=== PATIENT | male | born 1955 | race African-American/Black ===

== ENCOUNTER 2016-11-16 17:22 | Emergency (ER) | payer MEDICAID ==
[~2016-11-16] VITALS: Ht 175.3 cm; Wt 90.3 kg
[~2016-11-16 17:22] MED LIST: AMLODIPINE BESY10 MG PO; ASPIRIN81 M1 PO; CYCLOBENZAPRINE10 MG ORAL; IBUPROFEN600 MG ORAL; IBUPROFEN800 MG PO; LOSARTAN POTASS50 MG ORAL; NORCO 5-325 TA1 EACH ORAL; NORVASC10 MG ORAL; PREVPAC PATIEN1 EACH PO; TRAMADOL HCL50 MG ORAL; VICODIN 5-5001 EACH PO
[2016-11-16 17:55] VITALS: BP 156/78
[2016-11-16] MEDS ORDERED: METOPROLOL TART50 MG ORAL (17:55)
[2016-11-16] MEDS ORDERED: TRAMADOL HCL50 MG ORAL (19:23)
[2016-11-16] MEDS ORDERED: IBUPROFEN600 MG ORAL (19:23)
[2016-11-16 19:33] VITALS: BP 156/78
--- NOTE | 2016-11-16 22:39 | Emergency Room Report ---
History of Present Illness General Chief Complaint: Upper Extremity Injury Source: Patient Present Illness [facility] The patient is a 60-year-old male presenting with right elbow pain which began 2 days prior for no known reason. The pain is described as a 9/10 dull ache it is worse with movement of the arm. No radiating pain. The patient denies any injury to the arm. The patient has not tried any medications. The patient denies any numbness or tingling and denies fever or chills Allergies: Coded Allergies: No Known Allergies (Unverified , 07/19/12) Patient History Past Medical History: see triage record Pertinent Family History: none Reviewed Nursing Documentation: PMH: Agreed, PSxH: Agreed Nursing Documentation-PMH Hx Hypertension: Yes Review of Systems All Other Systems: negative except mentioned in HPI Physical Exam Vital Signs Date Time Temp Pulse Resp B/P Pulse Ox O2 Delivery O2 Flow Rate FiO2 11/16/16 17:50 98.8 54 16 156/78 97 Room Air Sp02 EP Interpretation: reviewed, normal General Appearance: no apparent distress, alert, GCS 15, non-toxic Head: normocephalic, atraumatic Eyes: bilateral eye PERRL, bilateral eye normal inspection ENT: hearing grossly normal, normal pharynx, no angioedema, normal voice Neck: full range of motion, supple/symm/no masses Respiratory: chest non-tender, lungs clear, normal breath sounds, speaking full sentences Musculoskeletal: digits/nails normal, normal range of motion, tender - Tenderness to palpation over the olecranon and lateral epicondyle Neurologic: alert, oriented x3, responsive, motor strength/tone normal, sensory intact, speech normal Psychiatric: judgement/insight normal, memory normal, mood/affect normal, no suicidal/homicidal ideation Reflexes: 3+ bicep (R), 3+ bicep (L), 3+ tricep (R), 3+ tricep (L), 3+ knee (R) , 3+ knee (L) Skin: normal color, no rash, warm/dry, well hydrated Lymphatic: no adenopathy Procedures Splinting Splinting #1: Consent: Verbal Location: Right elbow Pre-Made Type: MOSES wrap Pre-Proc Neuro Vasc Exam: normal Post-Proc Neuro Vasc Exam: normal Patient Tolerated: Well Complications: None Splinting #2: Consent: Verbal Location: Right arm Pre-Made Type: Sling Pre-Proc Neuro Vasc Exam: normal Post-Proc Neuro Vasc Exam: normal Patient Tolerated: Well Complications: None Medical Decision Making PA Attestation Dr. Gutierrez is my supervising physician. Patient management was discussed with my supervising physician Diagnostic Impression: Primary Impression: Epicondylitis, lateral ER Course The patient is a 60-year-old male presenting with right elbow pain Ddx considered include but not limited to sprain/strain, fracture, contusion, gout, epicondylitis Physical exam: No apparent distress. Afebrile Right elbow: Full active range of motion. Sensation intact to light touch. No erythema or edema. There is tenderness to palpation over the olecranon and lateral epicondyles. Obvious deformity. No ecchymosis X-ray of the elbow is unremarkable Moses wrap is placed over the elbow the patient is given a sling. Patient is given a prescription for Motrin and tramadol. Patient will follow up with primary care. ER precautions given Other X-Ray Diagnostic Results Other X-Ray Diagnostic Results : X-Ray Ordered: R elbow Date: Nov 16, 2016 EP Interpretation: Yes Findings: no fractures, no dislocation, no soft tissue swelling Number of Views: 3 PA Scribe Text I am acting as scribe for my supervising physician. My supervising physician's interpretation of the R elbow xrays are there are no fractures, dislocations or soft tissue swelling. Last Vital Signs Date Time Temp Pulse Resp B/P Pulse Ox O2 Delivery O2 Flow Rate FiO2 11/16/16 19:33 54 16 156/78 97 Room Air 11/16/16 17:55 98.8 Status: improved Disposition: HOME, SELF-CARE Condition: Improved Scripts Tramadol Hcl* (ULTRAM*) 50 Mg Tablet 50 MG ORAL Q6H Y for For Pain, #10 TAB 0 Refills Prov: TERZIAN,ISABEL P.A. 11/16/16 Ibuprofen* (MOTRIN*) 600 Mg Tablet 600 MG ORAL Q8H Y for For Pain, #30 TAB 0 Refills Prov: TERZIAN,ISABEL P.A. 11/16/16 Patient Instructions: Lateral Epicondylitis With Rehab-Sports[facility] Additional Instructions: I discussed my findings with the patient. All questions and concerns have been answered. Treatment and medication compliance have been addressed. I advised the patient that they need to follow up with PMD in 3-5 days. Return to ED if pain remains or worsens, numbness or tingling occurs, new rash is noticed, fever is noticed, or if needed for any reason. Patient verbalized understanding of discharge instructions. ISABEL WALTERS Nov 16, 2016 22:39
--- NOTE | 2016-11-17 12:57 | Diagnostic Imaging Report ---
Indications: Right elbow pain Technique: 3 views of the right elbow Findings: Comparison: None No fracture, dislocation, lytic destruction, periosteal reaction, joint space widening or effusion, surrounding soft tissue abnormality, or other acute changes demonstrated. No deformity, alignment abnormality, arthritic change, soft tissue calcification, or other chronic changes demonstrated. IMPRESSION: Negative right elbow series.
== END 2016-11-16 19:34 | disposition home or self-care (01) ==
LOC: EMR 19:17
DX: M77.11 Lateral epicondylitis, right elbow (principal); I10 Essential (primary) hypertension
CPT/HCPCS: 29240; 29260; 99284

== ENCOUNTER 2017-02-09 | Emergency (ER) | payer MEDICAID, OTHER ==
[~2017-02-09] VITALS: Ht 177.8 cm; Wt 86.2 kg
[~2017-02-09] MED LIST changes: +METOPROLOL TART50 MG ORAL
[2017-02-09] MEDS ORDERED: OMEPRAZOLE40 M1 ORAL (00:10)
[2017-02-09] MEDS ORDERED: NORVASC10 MG ORAL (00:10)
[2017-02-09] MEDS ORDERED: PROPRANOLOL HCL40 MG ORAL (00:10)
[2017-02-09] MEDS ORDERED: HYDROCHLOROTHIA25 MG ORAL (00:10)
[2017-02-09 00:30] VITALS: BP 146/77
[2017-02-09] MEDS ORDERED: Aspirin Baby 81mg ORAL ONE (00:45)
[2017-02-09] MEDS ORDERED: Nitroglycerin 2% oint pkt TOPIC ONE (00:45)
[2017-02-09 00:59] LABS: APPEARANCE,URINE CLEAR; KETONES,URINE NEGATIVE (NEGATIVE); LEUKOCYTE ESTERASE ,URINE NEGATIVE (NEGATIVE); NITRITE,URINE NEGATIVE (NEGATIVE); PH,URINE 7 (4.5-8.0); PROTEIN,URINE NEGATIVE (NEGATIVE); UROBILINOGEN,URINE NORMAL MG/DL (0.0-1.0)
[2017-02-09 01:25] LABS: BASOPHILS % (AUTO) 2.2 % (0.0-2.0); EOSINOPHILS % (AUTO) 3.4 % (0.0-3.0); LYMPHOCYTES % (AUTO) 54.8 % (20.0-45.0); MEAN CORPUSCULAR HEMOGLOBIN 31.4 PG (27.0-31.0); MEAN CORPUSCULAR HGB CONC 34.3 G/DL (32.0-36.0); MEAN CORPUSCULAR VOLUME 92 FL (80-99); MEAN PLATELET VOLUME 7.4 FL (6.5-10.1); MONOCYTES % (AUTO) 9.6 % (1.0-10.0); PLATELET COUNT 120 K/UL (150-450); RED CELL DISTRIBUTION WIDTH 12.6 % (11.6-14.8); WHITE BLOOD COUNT 3.7 K/UL (4.8-10.8)
[2017-02-09 01:34] LABS: INR 1.2 (0.9-1.1); PROTHROMBIN TIME 11.9 SEC (9.30-11.50)
[2017-02-09 01:38] LABS: ALANINE AMINOTRANSFERASE 28 U/L (3-41); ANION GAP 8 (5-15); ASPARTATE AMINO TRANSFERASE 42 U/L (5-40); CARBON DIOXIDE 31 mEQ/L (20-30); CHLORIDE 98 mEQ/L (98-107); CREATININE 1.2 mg/dL (0.7-1.2); GLOMERULAR FILTRATION RATE > 60 mL/min (>60); HEMOLYSIS 182; POTASSIUM 5.1 mEQ/L (3.4-4.9); SODIUM 137 mEQ/L (135-145); TOTAL PROTEIN 7.1 g/dL (6.6-8.7); TROPONIN I < 0.30 ng/mL (<=0.30); URIC ACID 5.2 mg/dL (3.0-7.5)
[2017-02-09 01:47] VITALS: BP 138/79
--- NOTE | 2017-02-09 02:52 | Emergency Room Report ---
History of Present Illness General Chief Complaint: Edema Source: Patient Present Illness HPI Patient presents with bilateral foot pain and edema. No dyspnea or chest pain. No fevers or productive cough. Pain around ankles, not radiate 10/10, worsened over past week. Worsened with walking. Not take any medicine for this. Has had lasix in past. Denies tx for HTN - although review of older meds show Amlodipine and HCTZ. No renal problems. No calf tenderness or dyspnea. No fevers, chills. Has had eval for edema in past but can't say the cause. No NVD, dysuria. No h/o clots. No recent trauma. Allergies: Coded Allergies: No Known Allergies (Unverified , 02/09/17) Patient History Past Medical History: see triage record Social History: Reports: drug use - see tox, smoking Social History Narrative at home Reviewed Nursing Documentation: PMH: Agreed, PSxH: Agreed Nursing Documentation-PMH Hx Hypertension: Yes Review of Systems All Other Systems: negative except mentioned in HPI Physical Exam Vital Signs Date Time Temp Pulse Resp B/P Pulse Ox O2 Delivery O2 Flow Rate FiO2 02/09/17 00:02 98.1 75 16 155/97 97 Room Air Sp02 EP Interpretation: reviewed, normal General Appearance: well appearing, no apparent distress, GCS 15 Head: normocephalic Eyes: bilateral eye PERRL, bilateral eye normal inspection ENT: moist mucus membranes Neck: supple Respiratory: chest non-tender, lungs clear, normal breath sounds Cardiovascular #1: regular rate, rhythm, edema - + bilat Cardiovascular #2: 2+ radial (R) Gastrointestinal: normal inspection, normal bowel sounds, non tender, no mass, non-distended Musculoskeletal: digits/nails normal, gait/station normal, normal range of motion, no calf tenderness, pelvis stable, Manas's Sign negative Neurologic: alert, oriented x3, grossly normal Psychiatric: mood/affect normal Skin: normal inspection Medical Decision Making Diagnostic Impression: Primary Impression: Edema Qualified Codes: R60.9 - Edema, unspecified Additional Impressions: Substance abuse Ankle pain Qualified Codes: M25.571 - Pain in right ankle and joints of right foot; M25.572 - Pain in left ankle and joints of left foot ER Course Patient presents with edema and ankle pain. Ddx: dvt, chf, gout, pseudogout, medication side effect, renal failure amongst others. Emergent eval of cor and renal. Labs, EKG, CXR ordered. Treatment with lasix. Labs remarkable for nl BNP, eosinophilia (minimal), creat 1.2, + cocaine. EKG and CXR unremarkable. Uric acid normal. Diurese 1,400 ml Etiology of edema not clear. Also ankle pain unclear. Discussed 12 step. Patient improved. Patient stable for outpatient observation and treatment. Laboratory Tests Test 02/09/17 00:25 02/09/17 01:00 Urine Color Yellow Urine Appearance Clear Urine pH 7 (4.5-8.0) Urine Specific [place] 1.010 (1.005-1.035) Urine Protein Negative (NEGATIVE) Urine Glucose (UA) Negative (NEGATIVE) Urine Ketones Negative (NEGATIVE) Urine Occult Blood Negative (NEGATIVE) Urine Nitrite Negative (NEGATIVE) Urine Bilirubin Negative (NEGATIVE) Urine Urobilinogen Normal MG/DL (0.0-1.0) Urine Leukocyte Esterase Negative (NEGATIVE) Urine Opiates Screen Positive (NEGATIVE) H Urine Barbiturates Screen Negative (NEGATIVE) Phencyclidine (PCP) Screen Negative (NEGATIVE) Urine Amphetamines Screen Negative (NEGATIVE) Urine Benzodiazepines Screen Negative (NEGATIVE) Urine Cocaine Screen Positive (NEGATIVE) H Urine Marijuana (THC) Screen Negative (NEGATIVE) White Blood Count 3.7 K/UL (4.8-10.8) L Red Blood Count 3.60 M/UL (4.70-6.10) L Hemoglobin 11.3 G/DL (14.2-18.0) L Hematocrit 32.9 % (42.0-52.0) L Mean Corpuscular Volume 92 FL (80-99) Mean Corpuscular Hemoglobin 31.4 PG (27.0-31.0) H Mean Corpuscular Hemoglobin Concent 34.3 G/DL (32.0-36.0) Red Cell Distribution Width 12.6 % (11.6-14.8) Platelet Count 120 K/UL (150-450) L Mean Platelet Volume 7.4 FL (6.5-10.1) Neutrophils (%) (Auto) 30.0 % (45.0-75.0) L Lymphocytes (%) (Auto) 54.8 % (20.0-45.0) H Monocytes (%) (Auto) 9.6 % (1.0-10.0) Eosinophils (%) (Auto) 3.4 % (0.0-3.0) H Basophils (%) (Auto) 2.2 % (0.0-2.0) H Prothrombin Time 11.9 SEC (9.30-11.50) H Prothrombin Time INR 1.2 (0.9-1.1) H PTT 23 SEC (23-33) Sodium Level 137 mEQ/L (135-145) Potassium Level 5.1 mEQ/L (3.4-4.9) H Chloride Level 98 mEQ/L (98-107) Carbon Dioxide Level 31 mEQ/L (20-30) H Anion Gap 8 (5-15) Blood Urea Nitrogen 15 mg/dL (7-23) Creatinine 1.2 mg/dL (0.7-1.2) Estimate Glomerular Filtration Rate > 60 mL/min (>60) Glucose Level 105 mg/dL (74-106) Uric Acid 5.2 mg/dL (3.0-7.5) Calcium Level 9.0 mg/dL (8.6-10.2) Total Bilirubin < 0.2 mg/dL (0.0-1.2) Aspartate Amino Transferase (AST) 42 U/L (5-40) H Alanine Aminotransferase (ALT) 28 U/L (3-41) Alkaline Phosphatase 53 U/L (40-129) Total Creatine Kinase 428 U/L (38-174) H Troponin I < 0.30 ng/mL (<=0.30) Pro-B-Type Natriuretic Peptide 44 pg/mL (0-125) Total Protein 7.1 g/dL (6.6-8.7) Albumin 3.7 g/dL (3.5-5.2) Globulin 3.4 g/dL Albumin/Globulin Ratio 1.0 (1.0-2.7) EKG Diagnostic Results Rate: normal Rhythm: NSR ST Segments: no acute changes Rhythm Strip Diag. Results EP Interpretation: yes Rhythm: NSR, no PVC's, no ectopy Chest X-Ray Diagnostic Results EP Interpretation: Yes Findings: no consolidation, no effusion, no pneumothorax, no acute cardiopulmonary disease Number of Views: 1 Last Vital Signs Date Time Temp Pulse Resp B/P Pulse Ox O2 Delivery O2 Flow Rate FiO2 02/09/17 03:21 98.1 56 10 134/78 97 Room Air Status: improved Disposition: HOME, SELF-CARE Condition: Improved Scripts Triamterene/Hydrochlorothiazide* (DYAZIDE 37.5-25 MG TAB*) 1 Each Tablet 1 TAB ORAL QOD, #10 TAB Prov: Cosme Persaud M.D. 02/09/17 Referrals: [facility],REFERRING (PCP) Cosme Persaud M.D. February 09, 2017 02:52
[2017-02-09] MEDS ORDERED: TRIAMTERENE-HC1 EAC5 ORAL (02:54)
[2017-02-09 03:12] VITALS: BP 134/78
[2017-02-09 03:21] VITALS: BP 134/78
--- NOTE | 2017-02-09 09:36 | Diagnostic Imaging Report ---
Indication: Chest Pain Comparison: 06/21/16 A single view chest radiograph was obtained. Findings: Cardiomediastinal appearance is within normal limits for age. Pulmonary vascularity is appropriate. The diaphragmatic contour is smooth and costophrenic angles are sharp. No pleural effusions are identified. The bones are unremarkable. Impression: No acute findings
--- NOTE | 2017-02-09 15:46 | Cardiology Report ---
APPROVED REPORT EKG Measurement Heart [id number] Normal sinus rhythm Normal ECG
[2017-02-10] MEDS ORDERED: TRIAMTERENE-HC1 EAC5 ORAL (12:50)
== END 2017-02-09 03:24 | disposition home or self-care (01) ==
LOC: EMR 00:44
DX: R60.9 Edema, unspecified (principal); M25.571 Pain in right ankle and joints of right foot; F19.10 Other psychoactive substance abuse, uncomplicated; I10 Essential (primary) hypertension; F17.200 Nicotine dependence, unspecified, uncomplicated
CPT/HCPCS: 36415; 71010; 80053; 80300; 81003; 82550; 83880; 84484; 84550; 85025; 85610; 85730; 93005; 96374; 99284; J1940

== ENCOUNTER 2019-01-25 22:03 | Emergency (ER) | payer OTHER ==
[~2019-01-25] VITALS: Ht 177.8 cm; Wt 88.5 kg
[~2019-01-25 22:03] MED LIST changes: +HYDROCHLOROTHIA25 MG ORAL; +OMEPRAZOLE40 M1 ORAL; +PROPRANOLOL HCL40 MG ORAL; +TRIAMTERENE-HC1 EAC5 ORAL
[2019-01-25 22:19] VITALS: BP 188/83
[2019-01-25] MEDS ORDERED: Metoclopramide 10mg/2ml Inj IVP ONE (22:30)
[2019-01-25] MEDS ORDERED: Acetaminophen 500mg (ES) tab ORAL ONE (22:45)
[2019-01-25 23:21] LABS: APPEARANCE,URINE CLEAR; BILIRUBIN, URINE NEGATIVE (NEGATIVE); COLOR,URINE PALE YELLOW; GLUCOSE, URINE (UA) NEGATIVE (NEGATIVE); KETONES,URINE NEGATIVE (NEGATIVE); LEUKOCYTE ESTERASE ,URINE NEGATIVE (NEGATIVE); NITRITE,URINE NEGATIVE (NEGATIVE); PH,URINE 8 (4.5-8.0); PROTEIN,URINE NEGATIVE (NEGATIVE); UROBILINOGEN,URINE NORMAL MG/DL (0.0-1.0)
[2019-01-25 23:21] LABS: BASOPHILS % (AUTO) 2.6 % (0.0-2.0); EOSINOPHILS % (AUTO) 1.8 % (0.0-3.0); HEMATOCRIT 42.7 % (42.0-52.0); HEMOGLOBIN 15.4 G/DL (14.2-18.0); LYMPHOCYTES % (AUTO) 21.6 % (20.0-45.0); MEAN CORPUSCULAR VOLUME 88 FL (80-99); MONOCYTES % (AUTO) 11.7 % (1.0-10.0); NEUTROPHILS % (AUTO) 62.4 % (45.0-75.0); PLATELET COUNT 282 K/UL (150-450); RED BLOOD COUNT 4.87 M/UL (4.70-6.10); RED CELL DISTRIBUTION WIDTH 11.8 % (11.6-14.8); WHITE BLOOD COUNT 5.2 K/UL (4.8-10.8)
[2019-01-25 23:27] LABS: ANION GAP 6 mmol/L (5-15); BLOOD UREA NITROGEN 10 mg/dL (7-18); CARBON DIOXIDE 30 MMOL/L (21-32); CHLORIDE 97 MMOL/L (98-107); CREATININE 1.1 MG/DL (0.55-1.30); POTASSIUM 4.6 MMOL/L (3.5-5.1); SODIUM 133 MMOL/L (136-145)
[2019-01-25 23:29] LABS: ALANINE AMINOTRANSFERASE 30 U/L (12-78); ALBUMIN 4.1 G/DL (3.4-5.0); ALBUMIN/GLOBULIN RATIO 0.9 (1.0-2.7); ALKALINE PHOSPHATASE 74 U/L (46-116); ASPARTATE AMINO TRANSFERASE 54 U/L (15-37); BILIRUBIN,TOTAL 0.7 MG/DL (0.2-1.0)
[2019-01-25 23:56] VITALS: BP 144/74
[2019-01-26] MEDS ORDERED: ACETAMINOPHEN500 M3 ORAL (00:36)
[2019-01-26] MEDS ORDERED: CIPROFLOXACIN500 M2 ORAL (00:36)
[2019-01-26] MEDS ORDERED: Ciprofloxacin 500mg tab ORAL ONE (00:45)
[2019-01-26 01:21] VITALS: BP 144/74
--- NOTE | 2019-01-26 01:29 | Emergency Room Report ---
History of Present Illness General Chief Complaint: Headache Source: Patient Present Illness HPI Is a 63-year-old male presented after increased headache. Patient was noted to have increased vomiting as well as diarrhea. He states he may have eaten some bad shrimp and subsequently began having increased abdominal discomfort. He reports having no current abdominal pain. He reports having multiple episodes of diarrhea as well as vomiting. He denies any neck stiffness. He reports having frontal headache associate with some nasal congestion.Patient denies any hematemesis or bloody stool. Allergies: Coded Allergies: No Known Allergies (Unverified , 02/09/17) Patient History Past Medical History: see triage record Reviewed Nursing Documentation: PMH: Agreed; PSxH: Agreed Nursing Documentation-PMH Past Medical History: No History, Except For Hx Hypertension: Yes Review of Systems All Other Systems: negative except mentioned in HPI Physical Exam Vital Signs Date Time Temp Pulse Resp B/P (MAP) Pulse Ox O2 Delivery O2 Flow Rate FiO2 01/25/19 22:09 100.0 84 18 163/86 98 Room Air Sp02 EP Interpretation: reviewed, normal General Appearance: normal inspection, well appearing, no apparent distress, alert, GCS 15, non-toxic Head: atraumatic ENT: normal ENT inspection, hearing grossly normal, normal voice Neck: normal inspection, full range of motion, supple, no bony tend Respiratory: normal inspection, lungs clear, normal breath sounds, no respiratory distress, no retraction, no wheezing Cardiovascular #1: regular rate, rhythm, no edema Gastrointestinal: normal inspection, normal bowel sounds, non tender, soft, no guarding, no hernia Genitourinary: no CVA tenderness Musculoskeletal: normal inspection, back normal, normal range of motion Neurologic: normal inspection, alert, oriented x3, responsive, risk tech III-XII nml as tested, speech normal Psychiatric: normal inspection, judgement/insight normal, mood/affect normal Skin: normal inspection, normal color, no rash Medical Decision Making Diagnostic Impression: Primary Impression: Acute febrile illness ER Course Patient presented for headache. Differential diagnoses included but was not limited to influenza, meningitis, skull fracture, subarachnoid hemorrhage, meningitis, aneurysm, mass lesion, intracranial hemorrhage. Because of complexity of patient's case laboratory testing and imaging studies were ordered. CT imaging of the head read by radiology showed no evidence of acute intracranial hemorrhage or CVA. Laboratory testing was unremarkable. Patient was given IV fluids as well as oral ciprofloxacin due to patient's recent diarrhea. Patient was advised to continue oral hydration and to take antipyretics. He is advised to return if any worsening condition or other concerns. Labs Test 01/25/19 22:40 01/25/19 22:45 Urine Color Pale yellow Urine Appearance Clear Urine pH 8 (4.5-8.0) Urine Specific [place] 1.010 (1.005-1.035) Urine Protein Negative (NEGATIVE) Urine Glucose (UA) Negative (NEGATIVE) Urine Ketones Negative (NEGATIVE) Urine Blood Negative (NEGATIVE) Urine Nitrite Negative (NEGATIVE) Urine Bilirubin Negative (NEGATIVE) Urine Urobilinogen Normal MG/DL (0.0-1.0) Urine Leukocyte Esterase Negative (NEGATIVE) White Blood Count 5.2 K/UL (4.8-10.8) Red Blood Count 4.87 M/UL (4.70-6.10) Hemoglobin 15.4 G/DL (14.2-18.0) Hematocrit 42.7 % (42.0-52.0) Mean Corpuscular Volume 88 FL (80-99) Mean Corpuscular Hemoglobin 31.7 PG (27.0-31.0) Mean Corpuscular Hemoglobin Concent 36.1 G/DL (32.0-36.0) Red Cell Distribution Width 11.8 % (11.6-14.8) Platelet Count 282 K/UL (150-450) Mean Platelet Volume 6.3 FL (6.5-10.1) Neutrophils (%) (Auto) 62.4 % (45.0-75.0) Lymphocytes (%) (Auto) 21.6 % (20.0-45.0) Monocytes (%) (Auto) 11.7 % (1.0-10.0) Eosinophils (%) (Auto) 1.8 % (0.0-3.0) Basophils (%) (Auto) 2.6 % (0.0-2.0) Sodium Level 133 MMOL/L (136-145) Potassium Level 4.6 MMOL/L (3.5-5.1) Chloride Level 97 MMOL/L (98-107) Carbon Dioxide Level 30 MMOL/L (21-32) Anion Gap 6 mmol/L (5-15) Blood Urea Nitrogen 10 mg/dL (7-18) Creatinine 1.1 MG/DL (0.55-1.30) Estimat Glomerular Filtration Rate > 60 mL/min (>60) Glucose Level 104 MG/DL (74-106) Lactic Acid Level 1.00 mmol/L (0.4-2.0) Calcium Level 9.0 MG/DL (8.5-10.1) Total Bilirubin 0.7 MG/DL (0.2-1.0) Aspartate Amino Transf (AST/SGOT) 54 U/L (15-37) Alanine Aminotransferase (ALT/SGPT) 30 U/L (12-78) Alkaline Phosphatase 74 U/L (46-116) Total Protein 8.9 G/DL (6.4-8.2) Albumin 4.1 G/DL (3.4-5.0) Globulin 4.8 g/dL Albumin/Globulin Ratio 0.9 (1.0-2.7) Lipase 78 U/L (73-393) Last Vital Signs Date Time Temp Pulse Resp B/P (MAP) Pulse Ox O2 Delivery O2 Flow Rate FiO2 01/26/19 01:21 99.4 72 19 144/74 100 Room Air Status: improved Disposition: HOME, SELF-CARE Condition: Stable Scripts Acetaminophen* (ACETAMINOPHEN EXTRA STRENGTH*) 500 Mg Tablet 500 MG ORAL Q8H PRN for Fever/Headache/Mild Pain, #30 TAB Prov: Michele Tran MD 01/26/19 Ciprofloxacin Hcl* (CIPROFLOXACIN HCL*) 500 Mg Tablet 500 MG ORAL Q12H, #14 TAB 0 Refills Prov: Michele Tran MD 01/26/19 Patient Instructions: Fever, Adult Michele Tran MD Jan 26, 2019 01:29
--- NOTE | 2019-01-26 11:28 | Diagnostic Imaging Report ---
Indications: Headache Technique: Spiral acquisitions obtained through the brain. Angled axial and coronal 5 x 5 mm slices were reconstructed. Total dose length product 1487.93 mGycm. CTDI vol(s) 70.38 mGy. Dose reduction achieved using automated exposure control Comparison: 08/25/2016 Findings: No acute intracranial hemorrhage or edema. No mass effect nor midline shift. Normal size ventricles and extra-axial CSF spaces. There is minimal periventricular deep white matter low-attenuation. Normal celestin-white differentiation. Intact calvarium. There is ethmoid and left maxillary sinus mucosal disease. The mastoids are clear Impression: Minimal periventricular deep white matter chronic ischemic changes. Negative for acute intracranial bleed or mass effect Minimal ethmoid sinus disease The CT scanner at [facility] is accredited by the [employer] and the scans are performed using protocols designed to limit radiation exposure to as low as reasonably achievable to attain images of sufficient resolution adequate for diagnostic evaluation.
== END 2019-01-26 01:22 | disposition home or self-care (01) ==
LOC: EMR 22:16
DX: R50.9 Fever, unspecified (principal); R51 Headache; I10 Essential (primary) hypertension
CPT/HCPCS: 36415; 70450; 80053; 81003; 83605; 83690; 85025; 86710; 87040; 96374; 99284; J2765; J7040